=== PATIENT | male | born 1965 | race African-American/Black ===

== ENCOUNTER 2020-08-09 01:05 | Observation (INO) | payer BC, SELFPAY ==
[2020-08-09] VITALS (24 sets, daily range): BP systolic 102–209; BP diastolic 53–109; PULSE 66–96; RESP 14–20; TEMP 36.1–37.2; O2SAT 95–100; BMI 35.3; BMI 30.9; BMI 30.8
--- NOTE | 2020-08-09 01:25 | CT_ITS ---
PROCEDURE INFORMATION: Exam: CT Abdomen And Pelvis With Contrast Exam date and time: 08/09/2020 1:25 AM Age: 54 years old Clinical indication: Nausea and vomiting; Abdominal pain; Localized; Patient HX: Lower abd pain with n/v TECHNIQUE: Imaging protocol: Computed tomography of the abdomen and pelvis with contrast. Total images: 353 Radiation optimization: All CT scans at this facility use at least one of these dose optimization techniques: automated exposure control; mA and/or kV adjustment per patient size (includes targeted exams where dose is matched to clinical indication); or iterative reconstruction. Contrast material: ISOVUE; Contrast volume: 75 ml; Contrast route: IV; COMPARISON: No relevant prior studies available. FINDINGS: Liver: Normal. No mass. Gallbladder and bile ducts: Normal. No calcified stones. No ductal dilation. Pancreas: Normal. No ductal dilation. Spleen: Normal. No splenomegaly. Adrenal glands: Normal. No mass. Kidneys and ureters: Bilateral likely benign renal cysts, requiring no further evaluation, as large as 3.5 cm. Stomach and bowel: Unremarkable. No obstruction. No mucosal thickening. Appendix: Normal appendix. Intraperitoneal space: Unremarkable. No free air. No significant fluid collection. Vasculature: Unremarkable. No abdominal aortic aneurysm. Lymph nodes: Unremarkable. No enlarged lymph nodes. Urinary bladder: Unremarkable as visualized. Reproductive: Prostatomegaly noted. Bones/joints: Facet joint degenerative changes are present. Multifocal neural foraminal stenosis, due to degeneration. Mild disc bulging at L4-S1. Soft tissues: Unremarkable. IMPRESSION: 1. Normal appendix. 2. No acute intra-abdominal process identified. COMMENTS: Consistent with the [employer]'s Incidental Findings Committee white paper (J Am Regina Radiol 2018): Any incidental renal lesion less than 1 cm or classified as too small to characterize, or any incidental cystic renal lesion characterized as simple-appearing, is likely benign. No follow-up imaging is recommended for these lesions per consensus recommendations based on imaging criteria.
[2020-08-09 01:40] LABS: Basophils # 0.1 K/mm3 (0-0.2); Basophils % 0.7 % (0.1-2.0); Eosinophils # 0.2 K/mm3 (0.0-0.4); Eosinophils % 1.4 % (0.1-12.0); Hematocrit 48.3 % (42.0-52.0); Hemoglobin 16.2 g/dL (14.1-18.0); Lymphocytes # 2.1 K/mm3 (0.7-4.5); Lymphocytes % 16.7 % (10-50); Mean Corpuscular HGB Conc 33.6 g/dL (31.8-35.4); Mean Corpuscular Hemoglobin 25.7 pg (27.0-31.2); Mean Corpuscular Volume 76.5 fl (80-94); Mean Platelet Volume 8.4 fl (7.4-10.4); Monocytes # 0.4 K/mm3 (0.1-1.0); Monocytes % 3.4 % (1.7-9.3); Neutrophils # 9.9 K/mm3 (1.8-7.8); Neutrophils % 77.7 % (37.0-80.0); Platelet Count 293 K/mm3 (142-424); Red Blood Count 6.31 M/mm3 (4.60-6.20); Red Cell Distribution Width 14.2 % (11.5-17.5); White Blood Count 12.7 K/mm3 (4.8-10.8)
[2020-08-09 01:47] LABS: Alanine Aminotransferase 15 U/L (12-78); Albumin Level 4.8 g/dl (3.5-5.0); Albumin/Globulin Ratio 1.3 (1.1-1.8); Alkaline Phosphatase 98 U/L (38-126); Amylase 73 U/L (30-110); Aspartate Amino Transferase 28 U/L (17-59); Bilirubin,Total 0.8 mg/dl (0.2-1.3); Blood Urea Nitrogen 7 mg/dl (9-20); Carbon Dioxide 30 mmol/L (22.0-30.0); Chloride 97 mmol/L (98-107); Creatinine Clearance Estimated 151 mL/min (50-200); Estimated Glomerular Filt Rate 78 ml/min (>60); GFR (African American) 95 ML/MIN (>60); Globulin 3.8 g/dL (1.3-3.2); Glucose 109 mg/dl (74-100); Lipase 49 U/L (23-300); Sodium 140 mmol/L (136-145); Total Protein,Serum 8.6 g/dl (6.3-8.2)
--- NOTE | 2020-08-09 02:13 | PC.NURSE ---
RETURNED FROM RAD
[2020-08-09 02:19] LABS: Microscopic, Urine URINE MICROSCOPIC (MICROSCOPIC)
[2020-08-09 02:21] LABS: Appearance,Urine CLEAR (Clear); Bilirubin,Urine Negative (Negative); Blood, Urine Negative (Negative); Color,Urine STRAW (Yellow); Glucose,Urine (UA) Negative (Negative); Ketones,Urine TRACE (Negative); Leukocyte Esterase,Urine Negative (Negative); Nitrate,Urine Negative (Negative); PH,Urine 6.5 (5.0-8.5); Protein,Urine Negative (Negative); Specific Gravity, Urine <= 1.005 (1.005-1.030); Urobilinogen,Urine 0.2 EU/dl (0.2)
[2020-08-09 02:34] LABS: Bacteria,Urine Trace /lpf; Squamous Epithelial Cell,Urine Occasional #/hpf (0-5)
--- NOTE | 2020-08-09 02:57 | HMH.EDGIBL ---
ED Disposition Clinical Impression: Upper gastrointestinal hemorrhage Hypertension Qualifiers: Hypertension type: primary hypertension Qualified Code(s): I10 - Essential (primary) hypertension Disposition: Admitted as Observation Condition on Discharge: Good Instructions: DI for Gastrointestinal Bleeding Referrals: Nell Brown MD [Primary Care Provider] - - Critical Care Critical Care Time: No Attestation: On 08/09/20, the high probability of a clinically significant, sudden or life threatening deterioration of the following system(s) required my full and direct attention, intervention and personal management. The time I documented below is in addition to time spent performing reported procedures but includes the following listed in this critical care notation. Medical Decision Making - Medical Records Medical records reviewed: Yes: I reviewed the patient's medical records. - [place] Inquiry Pt receiving controlled substance: No Vital Signs: 08/09/20 01:21 08/09/20 03:02 Temperature 97.6 F 98 F Temperature Source Oral Oral Pulse Rate 80 Pulse Rate [Right Brachial] 96 H Respiratory Rate 18 18 Blood Pressure 209/74 H Blood Pressure [Right Arm] 197/109 H Blood Pressure Mean [Right Arm] 138 Blood Pressure Source Automatic Cuff Blood Pressure Source [Right Arm] Automatic Cuff Blood Pressure Position Sitting Blood Pressure Position [Right Arm] Sitting 02 Sat by Pulse Oximetry 98 98 Oxygen Delivery Method Room Air - Lab Data Lab results reviewed: Yes: I reviewed the patient's lab results. Lab Results 08/09/20 01:26: WBC 12.7 H, RBC 6.31 H, Hgb 16.2, Hct 48.3, MCV 76.5 L, MCH 25.7 L, MCHC 33.6, RDW 14.2, Plt Count 293, MPV 8.4, Neut % (Auto) 77.7, Lymph % (Auto) 16.7, [place] % (Auto) 3.4, Eos % (Auto) 1.4, Baso % (Auto) 0.7, Neut # (Auto) 9.9 H, Lymph # (Auto) 2.1, [place] # (Auto) 0.4, Eos # (Auto) 0.2, Baso # (Auto) 0.1 08/09/20 01:26: Sodium 140, Potassium 4.0, Chloride 97 L, Carbon Dioxide 30, Anion Gap 17.0 H, BUN 7 L, Creatinine 1.00, Estimated Creat Clear 151, Estimated GFR 78, Est GFR ( Amer) 95, Glucose 109 H, Calcium 10.0, Total Bilirubin 0.8, AST 28, ALT 15, Alkaline Phosphatase 98, Total Protein 8.6 H, Albumin 4.8, Globulin 3.8 H, Albumin/Globulin Ratio 1.3, Amylase 73, Lipase 49 08/09/20 01:26: C-Reactive Protein 4.3 H 08/09/20 02:15: Urine Color Straw, Urine Appearance Clear, Urine pH 6.5, Ur Specific [place] <= 1.005, Urine Protein Negative, Urine Glucose (UA) Negative, Urine Ketones Trace, Urine Blood Negative, Urine Nitrate Negative, Urine Bilirubin Negative, Urine Urobilinogen 0.2, Ur Leukocyte Esterase Negative, Ur Squamous Epith Cells Occasional, Urine Bacteria Trace Result diagrams: 08/09/20 01:26 08/09/20 01:26 Orders (Tests/Meds): ED MEDICATIONS Generic Name Dose Route Start Last Admin Trade Name Freq PRN Reason Stop Dose Admin Sodium Chloride 1,000 mls @ 999 mls/hr 08/09/20 01:45 08/09/20 01:37 Sod Chlor 0.9% 1000ml Bag IV 08/09/20 02:45 999 mls/hr .Q1H1M SUHAS Administration Sodium Chloride 8 ml 08/09/20 01:36 Sodium Chloride 0.9% 10ml Vial IV 09/08/20 01:35 NEEDED PRN dilute pepcid Discontinued Medications Generic Name Dose Route Start Last Admin Trade Name Freq PRN Reason Stop Dose Admin Famotidine 20 mg 08/09/20 01:36 08/09/20 01:37 Famotidine 20mg/2ml Vial IV 08/09/20 01:37 20 mg ONCE ONE Administration Pantoprazole Sodium 80 mg/ 100 mls @ 100 mls/hr 08/09/20 01:33 08/09/20 01:37 Sodium Chloride IV 08/09/20 02:32 100 mls/hr ONCE ONE Administration Iopamidol 75 ml 08/09/20 02:20 08/09/20 02:20 Iopamidol-370 (76%);100ml Bottle IV 08/09/20 02:21 75 ml ONCE ONE Administration Morphine Sulfate 4 mg 08/09/20 03:02 08/09/20 03:03 Morphine 4mg/Ml Syringe IV 08/09/20 03:03 4 mg ONCE ONE Administration Ondansetron HCl 4 mg 08/09/20 01:36 08/09/20 01:38 Ondansetron 4mg/2ml Vial IV
[2020-08-09 03:09] LABS: C-Reactive Protein 4.3 mg/L (0-4)
[2020-08-09 03:14] LABS: Coronavirus 19, PCR Not Detected (NotDetected); Influenza A, PCR Not Detected (NotDetected); Influenza B, PCR Not Detected (NotDetected)
[2020-08-09 03:19] LABS: Erythrocyte Sedimentation Rate 7 mm/hr (0-20)
[2020-08-09 03:20] LABS: Troponin I < 0.01 ng/ml (0.00-0.034)
--- NOTE | 2020-08-09 03:23 | ECG_ITS ---
APPROVED REPORT Exam: Resting ECG HR:88 bpm ECG Measurements Heart Rate 88 AXES TN 118 P 61 QRSd 92 QRS 57 QT 366 T 61 QTc 442 Conclusion Sinus rhythm with premature supraventricular complexes Otherwise normal ECG Electronically signed by : Matthew Villar, 08/09/2020 17:40:48
--- NOTE | 2020-08-09 04:14 | PC.NURSE ---
Addendum entered by Roselia Brown CNA 08/09/20 04:54: CORRECTION- ARRIVAL TIME TO FLOOR WAS 0414 Original Note: PT ARRIVED TO FLOOR VIA W/C FROM ED W/STAFF AT 0141
[2020-08-09 06:28] LABS: Basophils # 0.1 K/mm3 (0-0.2); Eosinophils # 0.1 K/mm3 (0.0-0.4); Mean Corpuscular Volume 78.8 fl (80-94); Monocytes # 0.7 K/mm3 (0.1-1.0); Neutrophils # 8.3 K/mm3 (1.8-7.8); Red Cell Distribution Width 13.7 % (11.5-17.5); White Blood Count 11.4 K/mm3 (4.8-10.8)
[2020-08-09 06:39] LABS: Basophils % 0.8 % (0.1-2.0); Hematocrit 41.8 % (42.0-52.0); Hemoglobin 13.7 g/dL (14.1-18.0); Lymphocytes # 2.1 K/mm3 (0.7-4.5); Lymphocytes % 18.8 % (10-50); Mean Corpuscular HGB Conc 32.9 g/dL (31.8-35.4); Mean Corpuscular Hemoglobin 25.9 pg (27.0-31.2); Mean Platelet Volume 8.8 fl (7.4-10.4); Monocytes % 6.4 % (1.7-9.3); Neutrophils % 73.1 % (37.0-80.0); Platelet Count 256 K/mm3 (142-424)
[2020-08-09 06:40] LABS: Troponin I < 0.01 ng/ml (0.00-0.034)
--- NOTE | 2020-08-09 07:25 | P.CONPHA_ITS ---
[facility] Pharmacy VTE Monitoring - Patient Demographics Admission date: 08/09/20 Report Date: 08/09/20 Time: 07:25 Allergies/Adverse Reactions: Patient Allergies No Known Allergies Allergy (Verified 08/09/20 04:17) Height: 1.88 m Weight: 109.344 kg Patient Problems: Current Active Problems Upper gastrointestinal hemorrhage (Acute) Hypertension (Acute) - VTE Risk Labs: VTE Related Lab Results Hgb 13.7 g/dL (14.1-18.0) L D 08/09/20 05:47 Hct 41.8 % (42.0-52.0) L 08/09/20 05:47 Plt Count 256 K/mm3 (142-424) 08/09/20 05:47 BUN 7 mg/dl (9-20) L 08/09/20 01:26 Creatinine 1.00 mg/dl (0.66-1.25) 08/09/20 01:26 Estimated Creat Clear 151 mL/min (50-200) 08/09/20 01:26 Was VTE Risk Assessment Performed: Yes VTE Score: 1 VTE Risk Level: Very Low Risk - Prophylaxis VTE Prophylaxis Ordered?: Yes Types of VTE Prophylaxis: TEDS Knee High Location of Applied Device: Bilateral Lower Extremeties
--- NOTE | 2020-08-09 07:26 | HMH.HP ---
*Admission Date: 08/09/20 *Chief complaint: Vomiting *History of present illness: 54-year-old male with history of previous GI bleed from ulcer disease approximately 3 years ago presented to the emergency department with onset of vomiting yesterday that progressed to the point where patient had hematemesis. Patient became concerned he had another bleeding ulcer and presented to the ER. Patient underwent work-up and had normal hemoglobin. Patient was admitted for further observation and surgical consultation for EGD. This morning the patient reports mild abdominal pain. He has not had any further episodes of vomiting since arrival to the hospital. [facility] History I have reviewed the patient's past medical history: Yes Medical History: Reports:: Ulcer Denies:: Diabetes Mellitus Type 1, Diabetes Mellitus Type 2 *Have you ever received a pneumonia vaccine?: No *Have you received a flu vaccine this season?: No Other Surgeries: Yes: No Previous Surgery - *Social History Smoking Status: Current every day smoker Tobacco Type: cigarettes # Packs/Day (cigarettes): 2 Alcohol Intake: never *Occupational Status:: employed *Travel in the last 8 weeks: None Family Hx:: Cancer Review of Systems - Constitutional Denies body ache(s) - Eyes Denies blurry vision - ENT Denies difficulty swallowing - *Cardiovascular Denies chest pain at rest - *Respiratory Denies change in phlegm color, Denies chest congestion - *Gastrointestinal Denies belching - *Genitourinary Denies difficulty urinating - *Musculoskeletal Denies joint pain - Integumentary/Breasts Denies bleeding lesions - *Neurologic Denies abnormal hearing, Denies seizure-like activity - Psychiatric Denies lack of enjoyment Meds Home Medications Medication Instructions Recorded Confirmed Type Pantoprazole Sodium [Protonix 40mg 40 mg PO BID #60 tablet. 08/10/20 Rx tablet] Allergies Allergy/AdvReac Type Severity Reaction Status Date / Time No Known Allergies Allergy Verified 08/09/20 04:17 Exam Vital signs and Labs for Last 24 Hours: Temp Pulse Resp BP Pulse Ox 98.0 F 70 14 138/73 97 08/09/20 04:27 08/09/20 04:35 08/09/20 04:27 08/09/20 04:27 08/09/20 04:27 Laboratory Results - last 24 hr 08/09/20 01:26: WBC 12.7 H, RBC 6.31 H, Hgb 16.2, Hct 48.3, MCV 76.5 L, MCH 25.7 L, MCHC 33.6, RDW 14.2, Plt Count 293, MPV 8.4, Neut % (Auto) 77.7, Lymph % (Auto) 16.7, [place] % (Auto) 3.4, Eos % (Auto) 1.4, Baso % (Auto) 0.7, Neut # (Auto) 9.9 H, Lymph # (Auto) 2.1, [place] # (Auto) 0.4, Eos # (Auto) 0.2, Baso # (Auto) 0.1 08/09/20 01:26: Sodium 140, Potassium 4.0, Chloride 97 L, Carbon Dioxide 30, Anion Gap 17.0 H, BUN 7 L, Creatinine 1.00, Estimated Creat Clear 151, Estimated GFR 78, Est GFR ( Amer) 95, Glucose 109 H, Calcium 10.0, Total Bilirubin 0.8, AST 28, ALT 15, Alkaline Phosphatase 98, Total Protein 8.6 H, Albumin 4.8, Globulin 3.8 H, Albumin/Globulin Ratio 1.3, Amylase 73, Lipase 49 08/09/20 01:26: ESR 7 08/09/20 01:26: C-Reactive Protein 4.3 H 08/09/20 01:26: Troponin I < 0.01 08/09/20 02:15: Urine Color Straw, Urine Appearance Clear, Urine pH 6.5, Ur Specific [place] <= 1.005, Urine Protein Negative, Urine Glucose (UA) Negative, Urine Ketones Trace, Urine Blood Negative, Urine Nitrate Negative, Urine Bilirubin Negative, Urine Urobilinogen 0.2, Ur Leukocyte Esterase Negative, Ur Squamous Epith Cells Occasional, Urine Bacteria Trace 08/09/20 03:11: SARS-CoV-2 (PCR) Not detected, Influenza A Untype (PCR) Not detected, Influenza Type B (PCR) Not detected 08/09/20 05:47: Troponin I < 0.01 08/09/20 05:47: WBC 11.4 H, RBC 5.30, Hgb 13.7 L D, Hct 41.8 L, MCV 78.8 L, MCH 25.9 L, MCHC 32.9, RDW 13.7, Plt Count 256, MPV 8.8, Neut % (Auto) 73.1, Lymph % (Auto) 18.8, [place] % (Auto) 6.4, Eos % (Auto) 1.0, Baso % (Auto) 0.8, Neut # (Auto) 8.3 H, Lymph # (Auto) 2.1, [place] # (Auto) 0.7, Eos # (Auto) 0.1, Baso # (Auto) 0.1 I & O for Last 24 claudia
--- NOTE | 2020-08-09 08:39 | HMH.GSCON ---
*Admission Date: 08/09/20 *Reason for consult:: GI bleed *History of present illness: Patient is a 54-year-old male from [facility]. He has a apparent previous history of GI bleed. This was in 2018. The exact details are unclear by his report. He states that he was initially treated in [place] and then at the [facility]. Patient presented to the emergency department stating that anything he eats he vomits back up. He developed symptoms consistent with hematemesis after repeated vomiting. Upon presentation to the emergency department here he had a normal hemoglobin. He underwent CT scan of the abdomen pelvis which revealed no acute process. He was admitted for inpatient management and surgical consultation. He describes some mild abdominal pain. Review of Systems - Review of Systems Review of systems:: pertinent systems reviewed and negative unless documented below - *Neurologic Denies abnormal hearing, Denies seizure-like activity [facility] History I have reviewed the patient's past medical history: Yes Medical History: Reports:: Ulcer Denies:: Diabetes Mellitus Type 1, Diabetes Mellitus Type 2 *Have you ever received a pneumonia vaccine?: No *Have you received a flu vaccine this season?: No Other Surgeries: Yes: No Previous Surgery - *Social History Smoking Status: Current every day smoker Tobacco Type: cigarettes # Packs/Day (cigarettes): 2 Alcohol Intake: never *Occupational Status:: employed *Travel in the last 8 weeks: None Family Hx:: Cancer Meds Home Medications Medication Instructions Recorded Confirmed Type No Known Home Medications 08/09/20 08/09/20 History Allergies Allergy/AdvReac Type Severity Reaction Status Date / Time No Known Allergies Allergy Verified 08/09/20 04:17 Exam Vital signs and Labs for Last 24 Hours: Temp Pulse Resp BP Pulse Ox 98.1 F 75 16 144/68 H 95 08/09/20 07:35 08/09/20 07:35 08/09/20 07:35 08/09/20 07:35 08/09/20 07:35 Laboratory Results - last 24 hr 08/09/20 01:26: WBC 12.7 H, RBC 6.31 H, Hgb 16.2, Hct 48.3, MCV 76.5 L, MCH 25.7 L, MCHC 33.6, RDW 14.2, Plt Count 293, MPV 8.4, Neut % (Auto) 77.7, Lymph % (Auto) 16.7, [place] % (Auto) 3.4, Eos % (Auto) 1.4, Baso % (Auto) 0.7, Neut # (Auto) 9.9 H, Lymph # (Auto) 2.1, [place] # (Auto) 0.4, Eos # (Auto) 0.2, Baso # (Auto) 0.1 08/09/20 01:26: Sodium 140, Potassium 4.0, Chloride 97 L, Carbon Dioxide 30, Anion Gap 17.0 H, BUN 7 L, Creatinine 1.00, Estimated Creat Clear 151, Estimated GFR 78, Est GFR ( Amer) 95, Glucose 109 H, Calcium 10.0, Total Bilirubin 0.8, AST 28, ALT 15, Alkaline Phosphatase 98, Total Protein 8.6 H, Albumin 4.8, Globulin 3.8 H, Albumin/Globulin Ratio 1.3, Amylase 73, Lipase 49 08/09/20 01:26: ESR 7 08/09/20 01:26: C-Reactive Protein 4.3 H 08/09/20 01:26: Troponin I < 0.01 08/09/20 02:15: Urine Color Straw, Urine Appearance Clear, Urine pH 6.5, Ur Specific [place] <= 1.005, Urine Protein Negative, Urine Glucose (UA) Negative, Urine Ketones Trace, Urine Blood Negative, Urine Nitrate Negative, Urine Bilirubin Negative, Urine Urobilinogen 0.2, Ur Leukocyte Esterase Negative, Ur Squamous Epith Cells Occasional, Urine Bacteria Trace 08/09/20 03:11: SARS-CoV-2 (PCR) Not detected, Influenza A Untype (PCR) Not detected, Influenza Type B (PCR) Not detected 08/09/20 05:47: Troponin I < 0.01 08/09/20 05:47: WBC 11.4 H, RBC 5.30, Hgb 13.7 L D, Hct 41.8 L, MCV 78.8 L, MCH 25.9 L, MCHC 32.9, RDW 13.7, Plt Count 256, MPV 8.8, Neut % (Auto) 73.1, Lymph % (Auto) 18.8, [place] % (Auto) 6.4, Eos % (Auto) 1.0, Baso % (Auto) 0.8, Neut # (Auto) 8.3 H, Lymph # (Auto) 2.1, [place] # (Auto) 0.7, Eos # (Auto) 0.1, Baso # (Auto) 0.1 I & O for Last 24 hours: Intake & Output 08/06/20 08/07/20 08/08/20 08/09/20 11:59 11:59 11:59 11:59 Intake Total 1000 / 1000 Balance 1000 / 1000 Weight 241 lb 1 oz - *Routine Abdominal Exam Present: soft Results - Labs 08/09/20 05:47 0
--- NOTE | 2020-08-09 10:53 | PC.NURSE ---
surgery team notified of EGD at 11:30 today
--- NOTE | 2020-08-09 11:23 | PC.NURSE ---
Report given to Pre-Op nurse
--- NOTE | 2020-08-09 11:24 | PC.NURSE ---
Pt taken to pre-op via w/c for endoscopy
--- NOTE | 2020-08-09 11:49 | HMH.SCOPE ---
- Procedure: Date: 08/09/20 Patient Date of :: 1965 Procedure Performed:: Esophagogastroduodenoscopy Indications:: Patient is a 54-year-old male from [facility]. He has a apparent previous history of GI bleed. This was in 2018. The exact details are unclear by his report. He states that he was initially treated in [place] and then at the [facility]. Patient presented to the emergency department stating that anything he eats he vomits back up. He developed symptoms consistent with hematemesis after repeated vomiting. Upon presentation to the emergency department here he had a normal hemoglobin. He underwent CT scan of the abdomen pelvis which revealed no acute process. He was admitted for inpatient management and surgical consultation. He describes some mild abdominal pain. Performing Provider:: Luigi Mancini MD Referring Provider:: Matthew Villagomez MD Sedation:: MAC sedation Procedure:: Patient was taken to endoscopy procedure room. He was positioned in lateral decubitus position. Adequate intravenous sedation was achieved with anesthesia titration of propofol. Olympus endoscope was inserted via the oropharynx. Advanced into the esophagus. There was some mild tortuosity to the esophagus. Gastroesophageal junction was encountered at 40 cm from the incisors. Stomach was cannulated and insufflated. Retroflexion revealed no evidence of any appreciable hiatal hernia. He did have some erosive gastritis with a few antral erosions. Pylorus was traversed. Within the duodenal bulb there was a large nonbleeding duodenal ulcer. There was no obvious stigmata of recent bleeding. This appeared to be consistent with a clean-based exudative ulcer. Due to the ulcer there was some minor luminal compromise but the endoscope was able to be advanced beyond this into the distal duodenum. Endoscope was withdrawn into the stomach. Stomach was desufflated and the endoscope was withdrawn. Findings:: Erosive antral gastritis Large nonbleeding ulcer in duodenal bulb Recommendations:: I will going give patient limited clear liquid diet at this time. Recommend continuation of proton pump inhibitors. Complications:: None immediately apparent Estimated blood obtained (mL): 2
--- NOTE | 2020-08-09 11:49 | HMH.ANESCL ---
[facility] Anesthesia Checklist - Patient Identification Patient Identification: Arm Band - Structural Data Admitted From: Inpatient Planned Operative Procedure/s: EGD Consent for Planned Operative Procedure(s) Verified: Yes Verified Documents: Surgical Consent, History and Physical - NPO Status Verified Time NPO: 00:00 - Airway Assessment C-Spine Mobility Assessed: Yes TMJ Mobility Assessed: Yes Dentition: Poor Dentition - Neurological Assessment Level of Consciousness: Awake, Alert - Anesthesia Plan Anesthesia Risk discussed: Yes Anesthesia Plan: Verified ASA Class: II Anesthesia Type: MAC [facility] History Medical History: Reports:: Ulcer Denies:: Diabetes Mellitus Type 1, Diabetes Mellitus Type 2 *Have you ever received a pneumonia vaccine?: No *Have you received a flu vaccine this season?: No Anesthesia experience/problems:: None Other Surgeries: Yes: No Previous Surgery - *Social History Smoking Status: Current every day smoker Tobacco Type: cigarettes # Packs/Day (cigarettes): 2 Alcohol Intake: never Substance Use Type: denies use *Occupational Status:: employed *Travel in the last 8 weeks: None Family Hx:: Cancer
--- NOTE | 2020-08-09 12:05 | PC.NURSE ---
Pt returned back to room from EGD procedure
--- NOTE | 2020-08-09 12:36 | PC.NURSE ---
Sitting up in bed eating lunch. Denies any issues, denies any need for pain medication at this time.
[2020-08-09 14:17] LABS: Hematocrit 45.3 % (42.0-52.0); Hemoglobin 14.5 g/dL (14.1-18.0)
--- NOTE | 2020-08-09 19:21 | PC.NURSE ---
Report to MONICA Lagos
[2020-08-10] VITALS: PULSE 70
--- NOTE | 2020-08-10 03:21 | INFXCTL.NOTE ---
Patient A&Ox4. No complaints of pain. Patient rested well throughout shift. Good urine output. VSS. Patient voiced no further concerns to RN.
[2020-08-10 03:54] VITALS: BP 145/71; PULSE 73; RESP 16; TEMP 36.4; O2SAT 100
[2020-08-10 03:56] VITALS: BMI 31.2
[2020-08-10 04:00] VITALS: PULSE 70
--- NOTE | 2020-08-10 05:27 | PC.NURSE ---
Patient is A&Ox4. NO pain reported. Ambulated to bathroom independently. Good urine output. VSS. No further concerns voiced to RN.
[2020-08-10 07:04] LABS: Basophils # 0.1 K/mm3 (0-0.2); Basophils % 0.9 % (0.1-2.0); Eosinophils # 0.3 K/mm3 (0.0-0.4); Eosinophils % 3.2 % (0.1-12.0); Hemoglobin 13.8 g/dL (14.1-18.0); Lymphocytes # 2.8 K/mm3 (0.7-4.5); Lymphocytes % 29.2 % (10-50); Mean Corpuscular HGB Conc 31.4 g/dL (31.8-35.4); Mean Corpuscular Hemoglobin 25.1 pg (27.0-31.2); Mean Corpuscular Volume 79.8 fl (80-94); Mean Platelet Volume 8.9 fl (7.4-10.4); Monocytes # 0.6 K/mm3 (0.1-1.0); Monocytes % 6.3 % (1.7-9.3); Neutrophils # 5.8 K/mm3 (1.8-7.8); Neutrophils % 60.5 % (37.0-80.0); Platelet Count 232 K/mm3 (142-424); Red Blood Count 5.51 M/mm3 (4.60-6.20); Red Cell Distribution Width 13.9 % (11.5-17.5); White Blood Count 9.5 K/mm3 (4.8-10.8)
--- NOTE | 2020-08-10 07:04 | HMH.DCSUM ---
General - General Admission date:: 08/09/20 Discharge date: 08/10/20 HPI HPI: 56-year-old male with history of previous GI bleed from ulcer disease approximately 3 years ago presented to the emergency department with onset of vomiting yesterday that progressed to the point where patient had hematemesis. Patient became concerned he had another bleeding ulcer and presented to the ER. Patient underwent work-up and had normal hemoglobin. Patient was admitted for further observation and surgical consultation for EGD. This morning the patient reports mild abdominal pain. He has not had any further episodes of vomiting since arrival to the hospital. Hospital Course Hospital Course: Patient was admitted and CBC performed shortly after admission showed a drop in hemoglobin of 2-1/2 g. Patient was taken to the endoscopy suite by Dr. Mancini and found to have antral gastritis and a large duodenal bulb ulcer. There is no active bleeding. Patient was continued on Protonix drip for full 24 hours before transitioning to oral Protonix. Patient abdominal pain resolved. He had no further emesis. Patient denied nausea after EGD. Patient tolerated a liquid diet. Patient was discharged home the next morning. Patient was instructed to continue a liquid diet. He was twice placed on twice daily Protonix. Patient will follow up in 1 week. Objective Vital signs: Temp Pulse Resp BP Pulse Ox 97.6 F 70 16 145/71 H 100 08/10/20 03:54 08/10/20 04:00 08/10/20 03:54 08/10/20 03:54 08/10/20 03:54 no acute distress - *Routine Respiratory Exam Present: CTA bilaterally - *Routine Cardiovascular Exam Present: RRR - *Routine Abdominal Exam Present: soft, normoactive bowel sounds. Absent: tenderness Results Labs on day of discharge: Labs from last 24 hours 08/09/20 14:00 Hgb 14.5 Hct 45.3 DS: Diagnosis - Discharge Diagnosis (1) Upper gastrointestinal hemorrhage Status: Acute (2) Duodenal ulcer Status: Acute Discharge Plan - Patient Discharge Instructions ACTIVITY: Continue current activity DIET: continue same diet Patient Instructions: DI for High Blood Pressure, Gastrointestinal Bleeding - Follow up Plan Follow up with: Luigi Mancini MD [Staff Physician] - 1 week Nell Brown MD [Primary Care Provider] - 2 weeks Disposition: Home, Self-Care Condition at discharge:: Improved Home Medications: Home Medications Medication Instructions Recorded Confirmed Type Pantoprazole Sodium [Protonix 40mg 40 mg PO BID #60 tablet.dr 08/10/20 Rx tablet] Prescriptions/Medication Reconciliation: New Pantoprazole Sodium [Protonix 40mg tablet] 40 mg PO BID #60 tablet.dr - Problem Reconciliation Problems Reviewed?: Yes
[2020-08-10 07:23] VITALS: BP 161/87; PULSE 72; RESP 19; TEMP 36.4; O2SAT 96
== END 2020-08-10 08:55 | disposition home or self-care (01) ==
LOC: ER 03:15 → 2ND 03:17
PROVIDERS: Surgery; Admitting Provider Emergency Medicine; Emergency Provider Emergency Medicine; PCP Family Medicine; Visit Provider Family Medicine
PROC: 0DJ08ZZ Inspection of Upper Intestinal Tract, Via Natural or Artificial Opening Endoscopic (ICD-10-PCS; CPT 43235; principal; 2020-08-09 11:30)
DX: K26.4 Chronic or unspecified duodenal ulcer with hemorrhage (principal); F17.210 Nicotine dependence, cigarettes, uncomplicated
CPT/HCPCS: 43235; 36415; 74177; 80053; 81001; 82150; 83690; 84484; 85014; 85018; 85025; 85651; 86140; 93005; 96365; 96367; 96375; 99284; 99291; G0378; J2405; Q9967; U0003

== ENCOUNTER → 2020-10-04 08:14 | Outpatient (CLI) | payer BC, SELFPAY | PROVIDERS: Visit Provider Surgery | DX: Z01.812 Encounter for preprocedural laboratory examination (principal); Z11.52 Encounter for screening for COVID-19; Z13.810 Encounter for screening for upper gastrointestinal disorder | CPT/HCPCS: U0003 ==

== ENCOUNTER 2020-10-06 06:07 | Day surgery (SDC) | payer BC, SELFPAY ==
[2020-09-30 10:16] VITALS: BMI 22.9
[2020-10-06 06:27] VITALS: BP 117/74; PULSE 76; RESP 18; TEMP 36.7; O2SAT 98
--- NOTE | 2020-10-06 06:56 | HMH.ANESCL ---
[facility] Anesthesia Checklist - Patient Identification Patient Identification: Arm Band, Verbal (Name & ) - Structural Data Admitted From: Home Planned Operative Procedure/s: egd Consent for Planned Operative Procedure(s) Verified: Yes Verified Documents: History and Physical - NPO Status Verified Time NPO: 00:00 - Additional verifications Patient : No Anesthesia Reactions: No Hx Blood Transfusions: No Blood Transfusion Reaction: No Cephalosporin Allergy: No Previous Colonoscopy: Yes - Cardiovascular Assessment Heart Sounds: S1 & S2 Pulse Strength: Baseline Pulse Rhythm: Regular Peripheral Edema: No - Airway Assessment C-Spine Mobility Assessed: Yes TMJ Mobility Assessed: Yes Dentition: Edentulous - Neurological Assessment Level of Consciousness: Awake, Alert, Appropriate Hx Seizures: No Numbness or tingling in extremities: No - Anesthesia Plan Anesthesia Risk discussed: Yes Anesthesia Plan: Verified ASA Class: II Anesthesia Type: MAC [facility] History I have reviewed the patient's past medical history: Yes Medical History: Reports:: Ulcer Denies:: Cancer, Diabetes Mellitus Type 1, Diabetes Mellitus Type 2, Internal Pacemaker, MRSA, Seizures *Have you ever received a pneumonia vaccine?: No *Have you received a flu vaccine this season?: No Anesthesia experience/problems:: none Other Surgeries: Yes: No Previous Surgery, Colonoscopy, EGD. No: Pacemaker Amputation: No Fractures: No - *Social History Last grade of school completed: High school graduate Smoking Status: Current every day smoker Tobacco Type: cigarettes # Packs/Day (cigarettes): 2 Alcohol Intake: never Substance Use Type: denies use *Occupational Status:: employed *Travel in the last 8 weeks: None Family Hx:: Cancer
[2020-10-06 07:32] VITALS: O2SAT 97
--- NOTE | 2020-10-06 07:42 | P.PCN_ITS ---
- Procedure: Date: 10/06/20 Patient Date of :: 1965 Procedure Performed:: Esophagogastroduodenoscopy with biopsies Indications:: Patient presents for follow-up EGD. He is a 54-year-old -[place] male from [facility] who sees Dr. Hunter Brown. He presented with upper GI hemorrhage and underwent inpatient EGD on 08/09/2020. He was found to have some erosive gastritis but most notable large nonbleeding ulcer in the duodenal bulb. He has been on Protonix. Performing Provider:: Luigi Mancini MD Referring Provider:: Alice Brown MD Sedation:: MAC sedation Procedure:: Patient was taken to endoscopy procedure room and positioned in lateral decubitus position. Adequate intravenous sedation was achieved with anesthesia titration of propofol. Olympus endoscope was inserted via the oropharynx. Esophagus was cannulated. Overall esophagus appeared normal. Gastroesophageal junction was encountered at approximately 40 cm from the incisors. Stomach was cannulated and insufflated. Retroflexion was performed with good visualization of the gastroesophageal junction was difficult. There was some diffuse moderate nonerosive gastritis. Gastric antral mucosal biopsy was obtained for CLOtest for H. pylori. Pylorus was traversed. Careful inspection of the duodenal bulb and duodenal sweep revealed no evidence of any residual ulcer. Biopsy was obtained within the duodenal bulb. Endoscope was withdrawn into the stomach. Gastric mucosal biopsies obtained for histopathologic analysis. Stomach was desufflated and the endoscope was withdrawn. Findings:: Moderate nonerosive gastritis No evidence of any residual duodenal bulb ulcer Recommendations:: Continue proton pump inhibitors for now. Treat H. pylori if positive. If biopsies are unremarkable may be able to decrease to H2 blockers. Complications:: None immediately apparent Estimated blood obtained (mL): 2
[2020-10-06 07:45] VITALS: BP 106/76; PULSE 81; RESP 18; TEMP 36.2; O2SAT 98
[2020-10-06 07:55] VITALS: BP 128/86; PULSE 73; RESP 16; O2SAT 98
[2020-10-06 08:05] VITALS: BP 139/96; PULSE 72; RESP 18; O2SAT 97
[2020-10-06 08:15] VITALS: BP 151/87; PULSE 77; RESP 18; O2SAT 98
== END 2020-10-06 08:15 | disposition home or self-care (01) ==
LOC: OUTP 06:10
PROVIDERS: PCP Family Medicine; Visit Provider Surgery
PROC: 0DJ08ZZ Inspection of Upper Intestinal Tract, Via Natural or Artificial Opening Endoscopic (ICD-10-PCS; CPT 43235; principal; 2020-10-06 07:30)
DX: K29.60 Other gastritis without bleeding (principal); Z87.19 Personal history of other diseases of the digestive system; Z72.0 Tobacco use; Z80.9 Family history of malignant neoplasm, unspecified; Z79.899 Other long term (current) drug therapy
CPT/HCPCS: 43239; 87339